=== PATIENT | male | born 1980 | race African-American/Black ===

== ENCOUNTER 2020-04-15 17:44 | Emergency (ER) | payer OTHER ==
--- NOTE | 2020-04-15 19:04 | XR ---
EXAMINATION TYPE: XR chest 2V DATE OF EXAM: 04/15/2020 COMPARISON: NONE HISTORY: Fever and cough TECHNIQUE: 2 views FINDINGS: Heart and mediastinum are normal. Lungs are clear. Diaphragm is normal. Bony thorax appears normal. IMPRESSION: Normal chest.
--- NOTE | 2020-04-15 19:37 | ED ---
General Adult HPI - General Chief complaint: Fever Stated complaint: Covid test, needs for work Time Seen by Provider: 04/15/20 19:27 Source: patient, RN notes reviewed Mode of arrival: ambulatory Limitations: no limitations - History of Present Illness Initial comments: 40-year-old male presents to the emergency department for a chief complaint of cough. Patient reports that he has had a cough and sore throat for the past day or so. He was exposed to Covid as his [id number] was tested positive. Patient is anxious he may have Covid. He admits to minimal shortness of breath. Denies chest pain.Patient has no other complaints at this time including chest pain, abdominal pain, nausea or vomiting, headache, or visual changes. - Related Data Previous Rx's Medication Instructions Recorded Benzonatate [Tessalon Perles] 200 mg PO Q8H PRN #15 capsule 04/15/20 guaiFENesin [Mucinex] 600 mg PO Q12HR PRN #20 tablet.er 04/15/20 Allergies Allergy/AdvReac Type Severity Reaction Status Date / Time No Known Allergies Allergy Verified 04/15/20 18:20 Review of Systems ROS Statement: Those systems with pertinent positive or pertinent negative responses have been documented in the HPI. ROS Other: All systems not noted in ROS Statement are negative. Past Medical History Past Medical History: Diabetes Mellitus History of Any Multi-Drug Resistant Organisms: None Reported Past Surgical History: No Surgical Hx Reported Past Psychological History: No Psychological Hx Reported Smoking Status: Never smoker Past Alcohol Use History: None Reported Past Drug Use History: None Reported General Exam Limitations: no limitations General appearance: alert, in no apparent distress Head exam: Present: atraumatic, normocephalic, normal inspection Eye exam: Present: normal appearance, PERRL, EOMI. Absent: scleral icterus, conjunctival injection, periorbital swelling ENT exam: Present: normal exam, mucous membranes moist Neck exam: Present: normal inspection, full ROM. Absent: tenderness, meningismus, lymphadenopathy Respiratory exam: Present: normal lung sounds bilaterally. Absent: respiratory distress, wheezes, rales, rhonchi, stridor Cardiovascular Exam: Present: regular rate, normal rhythm, normal heart sounds. Absent: systolic murmur, diastolic murmur, rubs, gallop, clicks GI/Abdominal exam: Present: soft, normal bowel sounds. Absent: distended, tende rness, guarding, rebound, rigid Neurological exam: Present: alert Course Vital Signs 04/15/20 04/15/20 18:16 19:33 Temperature 100.0 F H Pulse Rate 95 Respiratory 20 18 Rate Blood Pressure 125/90 O2 Sat by Pulse 98 Oximetry Medical Decision Making - Medical Decision Making Vitals are stable. Patient has a low-grade temperature of 100.0. 98% on room air. Patient well-appearing. Chest x-ray shows a normal chest. COVID pcr pending. Presumed Covid-positive given history of exposure. Recommended patient quarantine. Recommended he return for any worsening symptoms such as shortness of breath. Disposition Clinical Impression: Cough, Fever, COVID-19 virus RNA test result unknown Disposition: HOME SELF-CARE Condition: Good Instructions (If sedation given, give patient instructions): Fever in Adults (ED) Additional Instructions: Please watch for Covid results. Take Tylenol for fever. You must quarantine until these results are completed. If you have any worsening symptoms such as shortness of breath return to the emergency department. Prescriptions: guaiFENesin [Mucinex] 600 mg PO Q12HR PRN #20 tablet.er PRN Reason: Congestion Benzonatate [Tessalon Perles] 200 mg PO Q8H PRN #15 capsule PRN Reason: Cough Is patient prescribed a controlled substance at d/c from ED?: No Referrals: Katarina Pierce MD [REFERRING] - 1-2 days Time of Disposition: 20:19
[2020-04-15] MEDS ORDERED: ACETAMINOPHEN TAB 500 MG TAB PO STA (20:05)
[2020-04-15 20:33] VITALS: BP 133/78; PULSE 88; RESP 16; TEMP 98.2
== END 2020-04-15 20:33 | disposition home or self-care (01) ==
LOC: EC 17:44
DX: R05 Cough (principal); R50.9 Fever, unspecified; R06.02 Shortness of breath; Z20.828 Contact with and (suspected) exposure to other viral communicable diseases
CPT/HCPCS: 71046; 99283; U0003

== ENCOUNTER 2020-07-15 09:32 | Emergency (ER) | payer SELFPAY ==
[2020-07-15 09:45] VITALS: BP 172/97; PULSE 100; RESP 18; TEMP 99
--- NOTE | 2020-07-15 11:02 | ED ---
Back Pain HPI - General Chief Complaint: Back Pain/Injury Stated Complaint: back pain Time Seen by Provider: 07/15/20 10:05 Source: patient Limitations: no limitations - History of Present Illness Initial Comments: patient is a 40-year-old male presenting to the emergency Department with complaints of left lower back pain that has been intermittent for the past month. Patient states about 1 month ago he fell at work and landed mostly on his butt, left side. Patient states since then he has been dealing with this low back discomfort. He states over the past week it is starting to get worse, he has pain when he tries to bend over and spasming. He denies any numbness and tingling into his extremities, no bowel or bladder incontinence, no saddle paresthesias. He denies any previous surgeries of his spine. He denies any fever or chills. he states he has not seen a PCP for this as he just recently moved to the area, a month ago and does not have a regular doctor yet.He has no further complaints at this time. - Related Data Previous Rx's Medication Instructions Recorded Cyclobenzaprine [Flexeril] 5 mg PO BID #10 tablet 07/15/20 Allergies Allergy/AdvReac Type Severity Reaction Status Date / Time No Known Allergies Allergy Verified 07/15/20 10:44 Review of Systems ROS Statement: Those systems with pertinent positive or pertinent negative responses have been documented in the HPI. ROS Other: All systems not noted in ROS Statement are negative. Past Medical History Past Medical History: Diabetes Mellitus History of Any Multi-Drug Resistant Organisms: None Reported Past Surgical History: No Surgical Hx Reported Past Psychological History: No Psychological Hx Reported Smoking Status: Never smoker Past Alcohol Use History: None Reported Past Drug Use History: None Reported General Exam - General Exam Comments Initial Comments: GENERAL: Patient is well-developed and well-nourished. Patient is nontoxic and in no acute distress. HEAD: Atraumatic, normocephalic. EYES: Pupils equal round and reactive to light, extraocular movements intact, sclera anicteric, conjunctiva are normal. Eyelids were unremarkable. ENT: TMs normal, nares patent, oropharynx clear without exudates. Moist mucous membranes. NECK: Normal range of motion, supple without lymphadenopathy or JVD. LUNGS: Unlabored respirations. Breath sounds clear to auscultation bilaterally and equal. No wheezes rales or rhonchi. HEART: Regular rate and rhythm without murmurs, rubs or gallops. ABDOMEN: Soft, nontender, normoactive bowel sounds. No guarding, no rebound. No masses appreciated. : Deferred MUSCULOSKELETAL: Normal extremities with adequate strength and normal range of motion, no pitting or edema. No clubbing or cyanosis. Mild pain with palpation of the left lumbar paraspinals, left sciatic area. Increased pain with trunk flexion. NEUROLOGICAL: Patient is alert and oriented x 3. Motor and sensory are also intact. Cranial nerves II through XII grossly intact. Symmetrical smile. Normal speech, normal gait. PSYCH: Normal mood, normal affect. SKIN: Warm, Dry, normal turgor, no rashes or lesions noted. Limitations: no limitations Course Vital Signs 07/15/20 09:43 Temperature 99.0 F Pulse Rate 100 Respiratory 18 Rate Blood Pressure 172/97 O2 Sat by Pulse 100 Oximetry Medical Decision Making - Medical Decision Making patient is a 40-year-old male here for left low back pain, left sciatica-type symptoms that has been intermittent for the past month. He had a fall at work, landed mostly in his bottom. His exam is consistent with lumbar muscle strain, left-sided sciatica. x-rays reveal no acute fractures dislocations. Discussed with patient this is most likely a muscle spasm, left-sided sciatica. Recommended heat, gentle stretching, ibuprofen for any discomfort. I will give him a few days of a muscle relaxer as well. Patient is requesting a work note, I will give him one. Patient is stable for discharge. Patient is in agreement with this plan of care. Return parameters were discussed with the patient and they verbalized understanding. Case discussed with Dr. Orellana. Disposition Clinical Impression: Sciatica of left side Disposition: HOME SELF-CARE Condition: Stable Instructions (If sedation given, give patient instructions): Sciatica (ED) Additional Instructions: Please return to the Emergency Department if symptoms worsen or any other concerns. Recommend taking Motrin or Aleve for discomfort, heat to the back, gentle stretching, Flexeril at nighttime for spasms. Up with regular physician as discussed. Prescriptions: Cyclobenzaprine [Flexeril] 5 mg PO BID #10 tablet Is patient prescribed a controlled substance at d/c from ED?: No Referrals: None,Stated [Primary Care Provider] - 1-2 days Katarina Pierce MD [REFERRING] - 1-2 days
--- NOTE | 2020-07-15 11:33 | XR ---
EXAM TYPE: LUMBAR SPINE X RAY SERIES COMPARISON: NONE HISTORY: Pain TECHNIQUE: 3 views are submitted. FINDINGS: Alignment is anatomic. The pedicles are intact. The transverse processes are intact. There is no s pondylolysis or spondylolisthesis. Hypertrophic and degenerative changes at T11-T12. IMPRESSION: 1. Hypertrophic and degenerative changes T11-T12.
== END 2020-07-15 11:54 | disposition home or self-care (01) ==
LOC: EC 09:32
DX: M54.42 Lumbago with sciatica, left side (principal); E11.9 Type 2 diabetes mellitus without complications
CPT/HCPCS: 72100; 99283

== ENCOUNTER 2024-12-24 16:04 | Inpatient (IN) | payer OTHER ==
--- NOTE | 2024-12-24 16:22 | ED ---
General Adult HPI - General Chief complaint: Extremity Problem,Nontraumatic Stated complaint: L foot issue Time Seen by Provider: 12/24/24 16:08 Source: patient, RN notes reviewed Mode of arrival: ambulatory Limitations: no limitations - History of Present Illness Initial comments: 44-year-old male with a history of T2DM presenting to the ER with complaints of left foot great toe pain and concern for infection. Patient states that over the past week and a half he has had worsening pain of his foot in the past few days he has noticed that there has been swelling purulent drainage and serous drainage. He reports over the weekend multiple episodes of emesis with nausea and reported chills. Does have a history of infection of the same toe in June 2024 where he had a PICC line and received IV antibiotics for 3 weeks. Patient states that he was "signed off "for infectious disease about 2-1/2 months ago and has not followed up with providers since. Denies current or recent antibiotic use. - Related Data Home Medications Medication Instructions Recorded Confirmed Semaglutide [Ozempic] 0.25 mg SQ MO 12/24/24 12/24/24 Allergies Allergy/AdvReac Type Severity Reaction Status Date / Time iodine Allergy Anaphylaxis Verified 12/24/24 17:43 mushroom Allergy Unknown Verified 12/24/24 17:43 shellfish derived [Shellfish] Allergy Anaphylaxis Verified 12/24/24 17:43 Review of Systems ROS Statement: Those systems with pertinent positive or pertinent negative responses have been documented in the HPI. ROS Other: All systems not noted in ROS Statement are negative. Past Medical History Past Medical History: Diabetes Mellitus History of Any Multi-Drug Resistant Organisms: None Reported Past Surgical History: No Surgical Hx Reported Additional Past Surgical History / Comment(s): left foot skin surgery Past Psychological History: No Psychological Hx Reported Smoking Status: Never smoker Past Alcohol Use History: None Reported Past Drug Use History: None Reported General Exam Limitations: no limitations Neck exam: Present: normal inspection. Absent: tenderness, meningismus, lymphadenopathy Respiratory exam: Present: normal lung sounds bilaterally. Absent: respiratory distress, wheezes, rales, rhonchi, stridor Cardiovascular Exam: Present: regular rate, normal rhythm, normal heart sounds. Absent: systolic murmur, diastolic murmur, rubs, gallop, clicks GI/Abdominal exam: Present: soft, normal bowel sounds. Absent: distended, tenderness, guarding, rebound, rigid Left Foot/Toe exam: Present: tenderness, swelling, erythema. Absent: ecchymosis, crepitus Neurovascular tendon exam: Present: no vascular compromise. Absent: pulse deficit Back exam: Present: normal inspection Course Vital Signs 12/24/24 12/24/24 12/24/24 16:04 17:07 20:42 Temperature 98.5 F Pulse Rate 111 H 98 96 Respiratory 18 18 18 Rate Blood Pressure 107/65 128/88 115/86 O2 Sat by Pulse 99 97 98 Oximetry 12/24/24 21:58 Temperature 99.8 F H Pulse Rate 100 Respiratory 18 Rate Blood Pressure 106/87 O2 Sat by Pulse 96 Oximetry Medical Decision Making - Medical Decision Making Was pt. sent in by a medical professional or institution (, PA, COSTUME DESIGN TEACHER, urgent care, hospital, or correction...) When possible be specific @ -No Did you speak to anyone other than the patient for history (EMS, parent, family, police, friend...)? What history was obtained from this source @ -No Did you review nursing and triage notes (agree or disagree)? Why? @ -I reviewed and agree with nursing and triage notes Were old charts reviewed (outside hosp., previous admission, EMS record, old EKG, old radiological studies, urgent care reports/EKG's, correction records)? Report findings @ -No old charts were reviewed Differential Diagnosis (chest pain, altered mental status, abdominal pain women, abdominal pain men, vaginal bleeding, weakness, fever, dyspnea, syncope, headache, dizziness, GI bleed, back pain, seizure, CVA, palpatations, mental health, musculoskeletal)? @ -Cellulitis, abscess, osteomyelitis, this list is not all inclusive EKG interpreted by me (3pts min.). @ -None X-rays interpreted by me (1pt min.). @ -X-ray of the left foot reveals no evidence of acute fracture with soft tissue swelling of the first digit with no osseous erosion to suggest osteomyelitis CT interpreted by me (1pt min.). @ -None done U/S interpreted by me (1pt. min.). @ -None done What testing was considered but not performed or refused? (CT, X-rays, U/S, labs)? Why? @ -None What meds were considered but not given or refused? Why? @ -None Did you discuss the management of the patient with other professionals (pro fessionals i.e. , PA, COSTUME DESIGN TEACHER, lab, RT, psych nurse, social worker psychiatric, diesel lube tech, teacher, police patrol officer, caseworker intake)? Give summary @ -Spoke with patient's primary care provider, Dr. Vivas, was agreed to meet the patient for IV antibiotics with infectious disease on consult. Was smoking cessation discussed for >3mins.? @ -No Was critical care preformed (if so, how long)? @ -No Were there social determinants of health that impacted care today? How? (Homelessness, low income, unemployed, alcoholism, drug addiction, transportation, low edu. Level, literacy, decrease access to med. care, retirement, rehab)? @ -No Was there de-escalation of care discussed even if they declined (Discuss DNR or withdrawal of care, Hospice)? DNR status @ -No What co-morbidities impacted this encounter? (DM, HTN, Smoking, COPD, CAD, Cancer, CVA, ARF, Chemo, Hep., AIDS, mental health diagnosis, sleep apnea, morbid obesity)? @ -Diabetes mellitus Was patient admitted / discharged? Hospital course, mention meds given and ro [place], prescriptions, significant lab abnormalities, going to OR and other pertinent info. @ -Admitted. 44-year-old male presenting to the ER with complaints of left great toe pain. Patient's left great toe is erythematous, edematous and there is purulent material expelled with pressure. Patient was offered pain medication however is declined. Wound cultures obtained. Laboratory testing reveals mild leukocytosis 11.65. Patient is hyperglycemic with a glucose of 334. CRP elevated 8.6. X-ray imaging reveals no evidence of osteomyelitis. With concern for severity of infection patient will be admitted for IV biotics. He is provided with 2 g of Rocephin. Infectious disease consult placed. Patient is admitted to Dr. Vivas. Case discussed with my attending Dr. Ivey Undiagnosed new problem with uncertain prognosis? @ -No Drug Therapy requiring intensive monitoring for toxicity (Heparin, Nitro, Insulin, Cardizem)? @ -No Were any procedures done? @ -No Diagnosis/symptom? @ -Cellulitis of left great toe Acute, or Chronic, or Acute on Chronic? @ -Acute Uncomplicated (without systemic symptoms) or Complicated (systemic symptoms)? @ -Uncomplicated Side effects of treatment? @ -No Exacerbation, Progression, or Severe Exacerbation? @ -No Poses a threat to life or bodily function? How? (Chest pain, [place], NE, pneumonia, PE, COPD, DKA, ARF, appy, cholecystitis, CVA, Diverticulitis, Homicidal, Suicidal, threat to staff... and all critical care pts) @ -No - Lab Data Result diagrams: 12/24/24 17:08 12/24/24 17:50 Lab Results 12/24/24 12/24/24 Range/Units 16:42 17:08 WBC 11.65 H (4.50-10.00) 10*3/uL RBC 4.57 (4.40-5.60) 10*6/uL Hgb 12.5 L (13.0-17.0) g/dL Hct 36.7 L (39.6-50.0) % MCV 80.3 (80.0-97.0) fL MCH 27.4 (27.0-32.0) pg MCHC 34.1 (32.0-37.0) g/dL Plt Count 199 (140-440) 10*3/uL MPV 11.6 (9.5-12.2) fL Immature Gran % (Auto) 0.3 % Neutrophils % 64.8 % Lymphocytes % 23.5 % Monocytes % 10.1 % Eosinophils % 0.9 % Basophils % 0.4 % Immature Gran # 0.04 (0.00-0.04) 10*3/uL Neutrophils # 7.53 (1.80-7.70) 10*3/uL Lymphocytes # 2.74 (0.90-5.00) 10*3/uL Monocytes # 1.18 H (0.20-1.00) 10*3/uL Eosinophils # 0.11 (0.04-0.35) 10*3/uL Basophils # 0.05 (0.00-0.10) 10*3/uL Plasma Lactic Acid Henrique 1.5 (0.7-2.0) mmol/L Disposition Clinical Impression: Cellulitis of great toe Disposition: ADMITTED IP TO THIS [facility] Condition: Stable Decision to Admit Reason: Admit from EC Decision Date: 12/24/24 Decision Time: 19:35
[2024-12-24] MEDS: LACTATED RINGERS 1,000 ML IV ONE (16:44)
--- NOTE | 2024-12-24 16:59 | XR ---
EXAMINATION TYPE: XR foot complete LT DATE OF EXAM: 12/24/2024 4:47 PM INDICATION: Patient age:Male; 44 years old; Reason for study: great toe infection, purulence, pain; PHH. pain COMPARISON: None TECHNIQUE: The left foot was examined in the AP, oblique, and lateral projections. FINDINGS: No evidence of any acute osseous pathology. No osseous erosions. No radiopaque foreign body. Soft ti ssue swelling of the first digit. Joints are preserved. Small plantar calcaneal enthesophyte. IMPRESSION: 1. No evidence of acute fracture. 2. Soft tissue swelling of the first digit corresponding to reported great toe infection. No osseous erosions to suggest osteomyelitis. [facility], , 12/24/2024 4:56 PM
[2024-12-24 17:27] LABS: Basophils # (A) 0.05 10*3/uL (0.00-0.10); Basophils % (A) 0.4 %; Eosinophils # (A) 0.11 10*3/uL (0.04-0.35); Eosinophils % (A) 0.9 %; HCT 36.7 % (39.6-50.0); HGB 12.5 g/dL (13.0-17.0); Lymphocytes # (A) 2.74 10*3/uL (0.90-5.00); Lymphocytes % (A) 23.5 %; MCH 27.4 pg (27.0-32.0); MCHC 34.1 g/dL (32.0-37.0); MCV 80.3 fL (80.0-97.0); Monocytes # (A) 1.18 10*3/uL (0.20-1.00); Monocytes % (A) 10.1 %; Neutrophils # (A) 7.53 10*3/uL (1.80-7.70); Neutrophils % (A) 64.8 %; Platelet Count 199 10*3/uL (140-440); RBC 4.57 10*6/uL (4.40-5.60); RDW 13.0 % (11.5-14.5); WBC 11.65 10*3/uL (4.50-10.00)
[2024-12-24 18:19] LABS: ALT 43 U/L (4-49); AST 28 U/L (17-59); African American GFR (CKD) >90 (>60 ml/min/1.73 sqM); Albumin 3.7 g/dL (3.5-5.0); Alkaline Phosphatase 129 U/L (38-126); Anion Gap 10 mmol/L; Blood Urea Nitrogen 11 mg/dL (9-20); Calcium 9.1 mg/dL (8.4-10.2); Carbon Dioxide 27 mmol/L (22-30); Chloride 95 mmol/L (98-107); Glucose 334 mg/dL (74-99); Non-African American GFR(CKD) >90 (>60 ml/min/1.73 sqM); Potassium 4.3 mmol/L (3.5-5.1); Sodium 132 mmol/L (137-145); Total Protein 7.0 g/dL (6.3-8.2)
[2024-12-24] MEDS ORDERED: NALOXONE 0.4 MG/ML 1 ML VIAL IV PRN (19:37)
[2024-12-24] MEDS ORDERED: IBUPROFEN 400 MG TAB PO PRN (19:37)
[2024-12-24] MEDS ORDERED: ACETAMINOPHEN TAB 325 MG TAB PO PRN (19:37)
[2024-12-24] MEDS ORDERED: DEXTROSE 50% SYRINGE 50 ML IVP PRN ×4 (20:29→20:55)
[2024-12-24] MEDS ORDERED: INSULIN LISPRO (HumaLOG) 100 UNIT/ML 10 mL VL SQ SCH ×2 (21:00)
[2024-12-24 21:05] LABS: Glucose,Whole Blood 312 mg/dL (70-110)
[2024-12-24] MEDS: INSULIN LISPRO (HumaLOG) 100 UNIT/ML 10 mL VL SQ SCH (21:15)
[2024-12-25 06:14] LABS: Glucose,Whole Blood 240 mg/dL (70-110)
[2024-12-25 10:26] LABS: Basophils # (A) 0.07 X 10*3/uL (0.00-0.10); Basophils % (A) 0.8 %; Eosinophils # (A) 0.26 X 10*3/uL (0.04-0.35); Eosinophils % (A) 2.9 %; HCT 37.0 % (39.6-50.0); HGB 11.8 g/dL (13.0-17.0); Immature Grans, Automated 0.50 %; Lymphocytes # (A) 3.68 X 10*3/uL (0.90-5.00); Lymphocytes % (A) 41.6 %; MCH 25.9 pg (27.0-32.0); MCHC 31.9 g/dL (32.0-37.0); MCV 81.3 FL (80.0-97.0); Monocytes # (A) 0.87 X 10*3/uL (0.20-1.00); Monocytes % (A) 9.8 %; NRBC Per 100 WBC 0 X 10*3/uL (0.00-0.01); Neutrophils # (A) 3.92 X 10*3/uL (1.80-7.70); Neutrophils % (A) 44.4 %; Platelet Count 219 X 10*3/uL (140-440); RBC 4.55 X 10*6/uL (4.40-5.60); RDW 13.4 % (11.5-14.5); WBC 8.84 X 10*3/uL (4.50-10.00)
[2024-12-25 10:44] LABS: ALT 37 U/L (10-49); AST 18 U/L (14-35); Albumin 3.4 g/dL (3.8-4.9); Albumin/Globulin Ratio 1.13 Ratio (1.60-3.17); Alkaline Phosphatase 124 U/L (41-126); Anion Gap 10.30 mmol/L (4.00-12.00); BUN/Creat Ratio 11.29 Ratio (12.00-20.00); Blood Urea Nitrogen 7.9 mg/dL (9.0-27.0); Calcium 8.7 mg/dL (8.7-10.3); Carbon Dioxide 24.7 mmol/L (21.6-31.8); Chloride 98 mmol/L (96-109); Globulin 3.0 g/dL (1.6-3.3); Glucose 264 mg/dL (70-110); Potassium 3.8 mmol/L (3.5-5.5); Sodium 133 mmol/L (135-145); Total Protein 6.4 g/dL (6.2-8.2)
[2024-12-25 12:11] LABS: Glucose,Whole Blood 225 mg/dL (70-110)
--- NOTE | 2024-12-25 15:19 | P.GSCN ---
History of Present Illness History of present illness: 58-year-old gentleman well-known to me from the past and has a callus on the plantar aspect of the left big toe. Swelling and pain in the left foot big toe blister formation and with some drainage patient has been admitted foiotics left big toe has some drainage we took the deep culture for aerobic and anaerobic wound is clean the saline and we placed silver alginat I have discussed about most likely will have a toe potation we will continue with antibiotic and decide history of diabetes neck examination neck is supple no bruit Chest clear good air entry in both lungs. Second sound present abdomen is soft nontender Vascular femorals are 1+ bilateral DP 1+ left big toe recent deep culture in place silver alginate we will watch for 48 hours if not then patient will need amputation Past Medical History Past Medical History: Diabetes Mellitus History of Any Multi-Drug Resistant Organisms: None Reported Past Surgical History: No Surgical Hx Reported Additional Past Surgical History / Comment(s): left foot skin surgery Past Anesthesia/Blood Transfusion Reactions: No Reported Reaction Past Psychological History: No Psychological Hx Reported Smoking Status: Never smoker Past Alcohol Use History: None Reported Past Drug Use History: None Reported Medications and Allergies Home Medications Medication Instructions Recorded Confirmed Type Semaglutide [Ozempic] 0.25 mg SQ MO 12/24/24 12/24/24 History Allergies Allergy/AdvReac Type Severity Reaction Status Date / Time iodine Allergy Anaphylaxis Verified 12/24/24 17:43 mushroom Allergy Unknown Verified 12/24/24 17:43 shellfish derived [Shellfish] Allergy Anaphylaxis Verified 12/24/24 17:43 Surgical - Exam Vital Signs Temp Pulse Resp BP Pulse Ox 98.5 F 111 H 18 107/65 99 12/24/24 16:04 12/24/24 16:04 12/24/24 16:04 12/24/24 16:04 12/24/24 16:04 Results - Labs 12/25/24 05:59 12/25/24 05:59 Abnormal Lab Results - Last 24 Hours (Table) 12/24/24 12/24/24 12/24/24 Range/Units 17:08 17:50 21:04 WBC 11.65 H (4.50-10.00) 10*3/uL Hgb 12.5 L (13.0-17.0) g/dL Hct 36.7 L (39.6-50.0) % MCH (27.0-32.0) pg MCHC (32.0-37.0) g/dL Monocytes # 1.18 H (0.20-1.00) 10*3/uL Sodium 132 L (137-145) mmol/L Chloride 95 L (98-107) mmol/L BUN (9.0-27.0) mg/dL BUN/Creatinine Ratio (12.00-20.00) Ratio Glucose 334 H (74-99) mg/dL POC Glucose (mg/dL) 312 H (70-110) mg/dL Hemoglobin A1c (<=6.0) % Total Bilirubin (0.3-1.2) mg/dL Alkaline Phosphatase 129 H (38-126) U/L C-Reactive Protein 8.6 H (<1.0) mg/dL Albumin (3.8-4.9) g/dL Albumin/Globulin Ratio (1.60-3.17) Ratio 12/25/24 12/25/24 12/25/24 Range/Units 05:59 05:59 05:59 WBC (4.50-10.00) 10*3/uL Hgb 11.8 L (13.0-17.0) g/dL Hct 37.0 L (39.6-50.0) % MCH 25.9 L (27.0-32.0) pg MCHC 31.9 L (32.0-37.0) g/dL Monocytes # (0.20-1.00) 10*3/uL Sodium 133 L (137-145) mmol/L Chloride (98-107) mmol/L BUN 7.9 L (9.0-27.0) mg/dL BUN/Creatinine Ratio 11.29 L (12.00-20.00) Ratio Glucose 264 H (74-99) mg/dL POC Glucose (mg/dL) (70-110) mg/dL Hemoglobin A1c 12.0 H (<=6.0) % Total Bilirubin <0.2 L (0.3-1.2) mg/dL Alkaline Phosphatase (38-126) U/L C-Reactive Protein (<1.0) mg/dL Albumin 3.4 L (3.8-4.9) g/dL Albumin/Globulin Ratio 1.13 L (1.60-3.17) Ratio 12/25/24 12/25/24 Range/Units 06:11 12:09 WBC (4.50-10.00) 10*3/uL Hgb (13.0-17.0) g/dL Hct (39.6-50.0) % MCH (27.0-32.0) pg MCHC (32.0-37.0) g/dL Monocytes # (0.20-1.00) 10*3/uL Sodium (137-145) mmol/L Chloride (98-107) mmol/L BUN (9.0-27.0) mg/dL BUN/Creatinine Ratio (12.00-20.00) Ratio Glucose (74-99) mg/dL POC Glucose (mg/dL) 240 H 225 H (70-110) mg/dL Hemoglobin A1c (<=6.0) % Total Bilirubin (0.3-1.2) mg/dL Alkaline Phosphatase (38-126) U/L C-Reactive Protein (<1.0) mg/dL Albumin (3.8-4.9) g/dL Albumin/Globulin Ratio (1.60-3.17) Ratio Diabetes panel 12/24/24 12/25/24 12/25/24 Range/Units 17:50 05:59 05:59 Sodium 132 L 133 L (137-145) mmol/L Potassium 4.3 3.8 (3.5-5.1) mmol/L Chloride 95 L 98 (98-107) mmol/L Carbon Dioxide 27 24.7 (22-30) mmol/L BUN 11 7.9 L (9-20) mg/dL Creatinine 0.69 0.7 (0.66-1.25) mg/dL Glucose 334 H 264 H (74-99) mg/dL Hemoglobin A1c 12.0 H (<=6.0) % Calcium 9.1 8.7 (8.4-10.2) mg/dL AST 28 18 (17-59) U/L ALT 43 37 (4-49) U/L Alkaline Phosphatase 129 H 124 (38-126) U/L Total Protein 7.0 6.4 (6.3-8.2) g/dL Albumin 3.7 3.4 L (3.5-5.0) g/dL Calcium panel 12/24/24 12/25/24 Range/Units 17:50 05:59 Calcium 9.1 8.7 (8.4-10.2) mg/dL Albumin 3.7 3.4 L (3.5-5.0) g/dL Pituitary panel 12/24/24 12/25/24 Range/Units 17:50 05:59 Sodium 132 L 133 L (137-145) mmol/L Potassium 4.3 3.8 (3.5-5.1) mmol/L Chloride 95 L 98 (98-107) mmol/L Carbon Dioxide 27 24.7 (22-30) mmol/L BUN 11 7.9 L (9-20) mg/dL Creatinine 0.69 0.7 (0.66-1.25) mg/dL Glucose 334 H 264 H (74-99) mg/dL Calcium 9.1 8.7 (8.4-10.2) mg/dL Adrenal panel 12/24/24 12/25/24 Range/Units 17:50 05:59 Sodium 132 L 133 L (137-145) mmol/L Potassium 4.3 3.8 (3.5-5.1) mmol/L Chloride 95 L 98 (98-107) mmol/L Carbon Dioxide 27 24.7 (22-30) mmol/L BUN 11 7.9 L (9-20) mg/dL Creatinine 0.69 0.7 (0.66-1.25) mg/dL Glucose 334 H 264 H (74-99) mg/dL Calcium 9.1 8.7 (8.4-10.2) mg/dL Total Bilirubin 0.5 <0.2 L (0.2-1.3) mg/dL AST 28 18 (17-59) U/L ALT 43 37 (4-49) U/L Alkaline Phosphatase 129 H 124 (38-126) U/L Total Protein 7.0 6.4 (6.3-8.2) g/dL Albumin 3.7 3.4 L (3.5-5.0) g/dL
[2024-12-25 17:12] LABS: Glucose,Whole Blood 297 mg/dL (70-110)
[2024-12-25] MEDS: AMPICILLIN-SULBACTAM 3 GM in SODIUM CHLORIDE 0.9% 100 ML IVPB SCH (18:11)
[2024-12-25] MEDS: LIDOCAINE 1% INJ 10MG/ML (20 ML MDV) SQ ONE (18:11)
[2024-12-25 20:32] LABS: Glucose,Whole Blood 302 mg/dL (70-110)
[2024-12-25] MEDS: INSULIN GLARGINE (LANTUS) 100 UNIT/ML SYR SQ SCH (20:36)
[2024-12-26 06:03] LABS: Glucose,Whole Blood 214 mg/dL (70-110)
[2024-12-26] MEDS: INSULIN LISPRO (HumaLOG) 100 UNIT/ML 10 mL VL SQ SCH (06:45)
--- NOTE | 2024-12-26 07:43 | P.CONS ---
History of Present Illness - Reason for Consult Consult date: 12/25/24 Left big toe cellulitis Requesting physician: Jessica Guthrie - Chief Complaint Left big toe swelling pain and redness x few days - History of Present Illness Patient is a 44-year-old -[place] male with a past medical history significant for diabetes mellitus in this patient has been dealing with the callus to the left big toe for some time and to follow-up with Dr. Cornell at the wound care center patient presented to the hospital concerning for left big toe swelling redness pain and concern for infection patient mention he noticed having increasing swelling over the last day or 2 and also noticed to having some purulent and serous drainage patient did mention that the pain decrease in intensity with spontaneous drainage of some of those fluid however did have associated swelling and redness with concern for infection when she presented to the hospital patient has been complaining of feeling nauseated and did have some chills and apparently the patient has been treated for infection to the left big toe with IV antibiotics by ID physician at [facility] who subsequently has cleared the patient and the patient has been antibiotics for the last few weeks, patient presentation to the hospital did have a low-grade fever of 99.8 degrees for night patient was mildly tachycardic but not hypotensive or hypoxic did have a white count of 11.65 creatinine 0.69 liver enzymes are normal local culture obtained which are currently pending patient was started on Rocephin infectious disease was consulted for cellulitis left big toe Review of Systems Positive point and negatives has been mentioned in the HPI, complete review of systems was performed and all other systems are negative Past Medical History Past Medical History: Diabetes Mellitus History of Any Multi-Drug Resistant Organisms: None Reported Past Surgical History: No Surgical Hx Reported Additional Past Surgical History / Comment(s): left foot skin surgery Past Anesthesia/Blood Transfusion Reactions: No Reported Reaction Past Psychological History: No Psychological Hx Reported Smoking Status: Never smoker Past Alcohol Use History: None Reported Past Drug Use History: None Reported Medications and Allergies Home Medications Medication Instructions Recorded Confirmed Type Semaglutide [Ozempic] 0.25 mg SQ MO 12/24/24 12/24/24 History Allergies Allergy/AdvReac Type Severity Reaction Status Date / Time iodine Allergy Anaphylaxis Verified 12/24/24 17:43 mushroom Allergy Unknown Verified 12/24/24 17:43 shellfish derived [Shellfish] Allergy Anaphylaxis Verified 12/24/24 17:43 Physical Exam Vitals: Vital Signs Temp Pulse Pulse Resp BP BP Pulse Ox 12/25/24 07:00 98.4 F 86 16 145/89 98 12/25/24 02:00 98.2 F 87 17 149/93 99 12/24/24 22:34 98.3 F 98 16 121/86 97 12/24/24 21:58 99.8 F H 100 18 106/87 96 12/24/24 20:42 96 18 115/86 98 12/24/24 17:07 98 18 128/88 97 12/24/24 16:04 98.5 F 111 H 18 107/65 99 Intake and Output 12/24/24 12/25/24 12/25/24 22:59 06:59 14:59 Other: # Voids 1 2 Weight 138.346 kg GENERAL DESCRIPTION: Middle-age male lying in bed, no distress. No tachypnea or accessory muscle of respiration use. HEENT: Shows Pallor , no scleral icterus. Oral mucous membrane is dry. NECK: Trachea central, no thyromegaly. LUNGS: Unlabored breathing. Clear to auscultation anteriorly. No wheeze or crackle. HEART: S1, S2, regular rate and rhythm. No loud murmur ABDOMEN: Soft, no tenderness , guarding or rigidity, no organomegaly EXTREMITIES: Left big toe did have a callus with surrounding swelling and redness minimal drainage on the dressing SKIN: No rash, no masses palpable. NEUROLOGICAL: The patient is awake, alert, oriented x3, mood and affect normal. Results CBC & Chem 7: 12/25/24 05:59 12/25/24 05:59 Labs: Abnormal Lab Results - Last 24 Hours (Table) 12/24/24 12/24/24 12/24/24 Range/Units 17:08 17:50 21:04 WBC 11.65 H (4.50-10.00) 10*3/uL Hgb 12.5 L (13.0-17.0) g/dL Hct 36.7 L (39.6-50.0) % MCH (27.0-32.0) pg MCHC (32.0-37.0) g/dL Monocytes # 1.18 H (0.20-1.00) 10*3/uL Sodium 132 L (137-145) mmol/L Chloride 95 L (98-107) mmol/L BUN (9.0-27.0) mg/dL BUN/Creatinine Ratio (12.00-20.00) Ratio Glucose 334 H (74-99) mg/dL POC Glucose (mg/dL) 312 H (70-110) mg/dL Hemoglobin A1c (<=6.0) % Total Bilirubin (0.3-1.2) mg/dL Alkaline Phosphatase 129 H (38-126) U/L C-Reactive Protein 8.6 H (<1.0) mg/dL Albumin (3.8-4.9) g/dL Albumin/Globulin Ratio (1.60-3.17) Ratio 12/25/24 12/25/24 12/25/24 Range/Units 05:59 05:59 05:59 WBC (4.50-10.00) 10*3/uL Hgb 11.8 L (13.0-17.0) g/dL Hct 37.0 L (39.6-50.0) % MCH 25.9 L (27.0-32.0) pg MCHC 31.9 L (32.0-37.0) g/dL Monocytes # (0.20-1.00) 10*3/uL Sodium 133 L (137-145) mmol/L Chloride (98-107) mmol/L BUN 7.9 L (9.0-27.0) mg/dL BUN/Creatinine Ratio 11.29 L (12.00-20.00) Ratio Glucose 264 H (74-99) mg/dL POC Glucose (mg/dL) (70-110) mg/dL Hemoglobin A1c 12.0 H (<=6.0) % Total Bilirubin <0.2 L (0.3-1.2) mg/dL Alkaline Phosphatase (38-126) U/L C-Reactive Protein (<1.0) mg/dL Albumin 3.4 L (3.8-4.9) g/dL Albumin/Globulin Ratio 1.13 L (1.60-3.17) Ratio 12/25/24 12/25/24 Range/Units 06:11 12:09 WBC (4.50-10.00) 10*3/uL Hgb (13.0-17.0) g/dL Hct (39.6-50.0) % MCH (27.0-32.0) pg MCHC (32.0-37.0) g/dL Monocytes # (0.20-1.00) 10*3/uL Sodium (137-145) mmol/L Chloride (98-107) mmol/L BUN (9.0-27.0) mg/dL BUN/Creatinine Ratio (12.00-20.00) Ratio Glucose (74-99) mg/dL POC Glucose (mg/dL) 240 H 225 H (70-110) mg/dL Hemoglobin A1c (<=6.0) % Total Bilirubin (0.3-1.2) mg/dL Alkaline Phosphatase (38-126) U/L C-Reactive Protein (<1.0) mg/dL Albumin (3.8-4.9) g/dL Albumin/Globulin Ratio (1.60-3.17) Ratio Assessment and Plan (1) Diabetic foot ulcer Current Visit: Yes Status: Acute Code(s): E11.621 - TYPE 2 DIABETES MELLITUS WITH FOOT ULCER; L97.509 - NON-PRESSURE CHRONIC ULCER OTH PRT UNSP FOOT W UNSP SEVERITY SNOMED Code(s): 806277233 (2) Diabetic foot infection Current Visit: Yes Status: Acute Code(s): E11.628 - TYPE 2 DIABETES MELLITUS WITH OTHER SKIN COMPLICATIONS; L08.9 - LOCAL INFECTION OF THE SKIN AND SUBCUTANEOUS TISSUE, UNSP SNOMED Code(s): 045910929 (3) Leukocytosis Current Visit: Yes Status: Acute Code(s): D72.829 - ELEVATED WHITE BLOOD JERRY L COUNT, UNSPECIFIED SNOMED Code(s): 615852346 (4) Cellulitis of great toe Current Visit: Yes Status: Acute Code(s): L03.039 - CELLULITIS OF UNSPECIFIED TOE SNOMED Code(s): 6404168081 Plan: 1patient presented hospital with increasing pain swelling redness to the left big toe and this patient did have history of callus to the left big toe and a previous history of infection to the left big toe treated with IV diuretic for 3 weeks back in June 2024 as reported by the ER physician treatment was done at [facility] to which I do not have any access. 2we will consult vascular surgery for debridement and deep culture. 3discontinue Rocephin. 4. The patient on Unasyn 3 g every 6 hours waiting for the culture to finalize 5check inflammatory markers Question concern answered in patient care discussed with the vascular surgeon We will follow on clinical condition and cultures to further adjust medication if needed Thank you for this consultation we will follow the patient along with you Dictation was produced using [employer] dictation software. please excuse any grammatical, word or spelling errors. Time with Patient: Greater than 30
[2024-12-26 12:33] LABS: Glucose,Whole Blood 213 mg/dL (70-110)
[2024-12-26 13:49] VITALS: BMI 41.3
--- NOTE | 2024-12-26 16:01 | P.PN ---
Progress Note - Text 44-year-old gentleman patient has a callus on the plantar aspect left foot big toe yesterday with cleaned it out and took some culture antibiotic under care of infectious disease the dressing no discharge noted base base of the wound is clean silver alginate will continue with Santyl cream next dressing will be changed on Tuesday show and having IV antibiotic under care of infectious disease we will home then follow-up with the wound clinic on Tuesday
[2024-12-26 17:27] LABS: Glucose,Whole Blood 171 mg/dL (70-110)
[2024-12-26 20:27] LABS: Glucose,Whole Blood 194 mg/dL (70-110)
[2024-12-26] MEDS: INSULIN GLARGINE (LANTUS) 100 UNIT/ML SYR SQ SCH (21:39)
[2024-12-27 06:08] LABS: Glucose,Whole Blood 184 mg/dL (70-110)
[2024-12-27 10:29] LABS: ALT 30 U/L (10-49); AST 17 U/L (14-35); Albumin 3.3 g/dL (3.8-4.9); Albumin/Globulin Ratio 1.14 Ratio (1.60-3.17); Alkaline Phosphatase 108 U/L (41-126); Anion Gap 10.20 mmol/L (4.00-12.00); BUN/Creat Ratio 11.29 Ratio (12.00-20.00); Blood Urea Nitrogen 7.9 mg/dL (9.0-27.0); Calcium 8.7 mg/dL (8.7-10.3); Carbon Dioxide 24.8 mmol/L (21.6-31.8); Chloride 102 mmol/L (96-109); Globulin 2.9 g/dL (1.6-3.3); Glucose 181 mg/dL (70-110); Potassium 4.0 mmol/L (3.5-5.5); Sodium 137 mmol/L (135-145); Total Protein 6.2 g/dL (6.2-8.2)
[2024-12-27 11:05] LABS: HCT 39.5 % (39.6-50.0); HGB 12.6 g/dL (13.0-17.0); MCH 26.6 pg (27.0-32.0); MCHC 31.9 g/dL (32.0-37.0); MCV 83.5 FL (80.0-97.0); NRBC Per 100 WBC 0 X 10*3/uL (0.00-0.01); Platelet Count 275 X 10*3/uL (140-440); RBC 4.73 X 10*6/uL (4.40-5.60); RDW 13.4 % (11.5-14.5); WBC 9.48 X 10*3/uL (4.50-10.00)
[2024-12-27 11:55] LABS: Basophils # (A) 0.07 X 10*3/uL (0.00-0.10); Basophils % (A) 0.7 %; Eosinophils # (A) 0.23 X 10*3/uL (0.04-0.35); Eosinophils % (A) 2.4 %; Immature Grans, Automated 0.60 %; Lymphocytes # (A) 4.49 X 10*3/uL (0.90-5.00); Lymphocytes % (A) 47.4 %; Monocytes # (A) 0.56 X 10*3/uL (0.20-1.00); Monocytes % (A) 5.9 %; Neutrophils # (A) 4.07 X 10*3/uL (1.80-7.70); Neutrophils % (A) 43.0 %; RBC Morphology Normal (Normal)
[2024-12-27 12:01] LABS: Glucose,Whole Blood 188 mg/dL (70-110)
[2024-12-27] MEDS ORDERED: VANCOMYCIN IV PER PHARMACY 1 EACH MISC MISCELLANE PRN (14:55)
--- NOTE | 2024-12-27 14:57 | P.PN ---
Subjective Progress Note Date: 12/26/24 Principal diagnosis: Reason for follow-up is left big toe diabetic foot infection/cellulitis Patient is a 44-year-old -[place] male with a past medical history significant for diabetes mellitus in this patient has been dealing with the callus to the left big toe for some time and to follow-up with Dr. Cornell at the wound care center patient presented to the hospital concerning for left big toe swelling redness patient has been diagnosed with a left big toe diabetic foot infection and did have a bedside debridement by vascular surgery. On today's evaluation that is 12/26/2024,the patient denies any fever or any chills, patient is breathing comfortably on room air, the patient denies chest pain shortness of breath and no significant cough, patient denies abdominal pain, no nausea vomiting or diarrhea. Pain and swelling to the left big toe has decreased in intensity. No new lab has been obtained today culture currently growing Enterococcus and Staphylococcus Objective - Vital Signs Vital signs: Vital Signs Temp 98.5 F 12/26/24 07:11 Pulse 77 12/26/24 07:11 Resp 17 12/26/24 07:11 BP 145/93 12/26/24 07:11 Pulse Ox 99 12/26/24 07:11 FiO2 Intake & Output 12/25/24 12/26/24 12/26/24 18:59 06:59 18:59 Other: Voiding Method Toilet Toilet # Voids 2 - Exam GENERAL DESCRIPTION: Middle-age male lying in bed in no distress RESPIRATORY SYSTEM: Unlabored breathing , decreased breath sounds at bases HEART: S1 S2 regular rate and rhythm , ABDOMEN: Soft , no tenderness EXTREMITIES: Left big toe swelling and redness slightly decreased - Labs CBC & Chem 7: 12/27/24 05:34 12/27/24 05:34 Labs: Abnormal Lab Results - Last 24 Hours (Table) 12/25/24 12/25/24 12/26/24 Range/Units 17:10 20:30 05:54 POC Glucose (mg/dL) 297 H 302 H 214 H (70-110) mg/dL 12/26/24 Range/Units 12:21 POC Glucose (mg/dL) 213 H (70-110) mg/dL Microbiology - Last 24 Hours (Table) 12/24/24 16:42 Blood Culture - Preliminary Blood 12/24/24 16:42 Gram Stain - Preliminary Toe - Left First Wound Culture - Preliminary Enterococcus faecalis Staphylococcus lugdunenisis Assessment and Plan (1) Diabetic foot ulcer Current Visit: Yes Status: Acute Code(s): E11.621 - TYPE 2 DIABETES MELLITUS WITH FOOT ULCER; L97.509 - NON-PRESSURE CHRONIC ULCER OTH PRT UNSP FOOT W UNSP SEVERITY SNOMED Code(s): 891286946 (2) Diabetic foot infection Current Visit: Yes Status: Acute Code(s): E11.628 - TYPE 2 DIABETES MELLITUS WITH OTHER SKIN COMPLICATIONS; L08.9 - LOCAL INFECTION OF THE SKIN AND SUBCUTANEOUS TISSUE, UNSP SNOMED Code(s): 392684777 (3) Leukocytosis Current Visit: Yes Status: Acute Code(s): D72.829 - ELEVATED WHITE BLOOD C ELL COUNT, UNSPECIFIED SNOMED Code(s): 504985903 (4) Cellulitis of great toe Current Visit: Yes Status: Acute Code(s): L03.039 - CELLULITIS OF UNSPECIFIED TOE SNOMED Code(s): 1508088007 Plan: 1patient presented hospital with increasing pain swelling redness to the left big toe and this patient did have history of callus to the left big toe and a previous history of infection to the left big toe treated with IV diuretic for 3 weeks back in June 2024 as reported by the ER physician treatment was done at [facility] to which I do not have any access. 2patient status post vascular surgery evaluation debridement and deep culture. 3patient will be treated with Unasyn 3 g every 6 hours waiting for the culture to finalize Dictation was produced using [employer] dictation software. please excuse any grammatical, word or spelling errors. Time with Patient: Less than 30
--- NOTE | 2024-12-27 14:58 | P.PN ---
Subjective Progress Note Date: 12/27/24 Principal diagnosis: Reason for follow-up is left big toe diabetic foot infection/cellulitis Patient is a 44-year-old -[place] male with a past medical history significant for diabetes mellitus in this patient has been dealing with the callus to the left big toe for some time and to follow-up with Dr. Cornell at the wound care center patient presented to the hospital concerning for left big toe swelling redness patient has been diagnosed with a left big toe diabetic foot infection and did have a bedside debridement by vascular surgery. On today's evaluation that is 12/27/2024,the patient remains to be afebrile, patient is on room air not requiring supplemental oxygen and mentioned breathing comfortably with no chest pain or cough.Patient denies having any nausea or vomiting, no abdominal pain and no diarrhea has been reported, patient mention overall improvement in pain to the left great toe. Culture now growing Enterococcus faecalis as well as oxacillin resistant Staphylococcus Lugdunenisis Objective - Vital Signs Vital signs: Vital Signs Temp 98.3 F 12/27/24 14:54 Pulse 92 12/27/24 14:54 Resp 17 12/27/24 14:54 BP 120/81 12/27/24 14:54 Pulse Ox 98 12/27/24 14:54 FiO2 Intake & Output 12/26/24 12/27/24 12/27/24 18:59 06:59 18:59 Intake Total 960 480 Output Total 600 Balance 960 -120 Weight 138.346 kg Intake: Oral 960 480 Output: Urine 600 Other: Voiding Method Toilet Toilet Toilet # Voids 2 2 1 - Exam GENERAL DESCRIPTION: Middle-age male lying in bed in no distress RESPIRATORY SYSTEM: Unlabored breathing , clear to auscultation HEART: S1 S2 regular rate and rhythm , ABDOMEN: Soft , no tenderness EXTREMITIES: Left big toe currently dressed no drainage - Labs CBC & Chem 7: 12/27/24 05:34 12/27/24 05:34 Labs: Abnormal Lab Results - Last 24 Hours (Table) 12/26/24 12/26/24 12/27/24 Range/Units 17:19 20:25 05:34 Hgb 12.6 L (13.0-17.0) g/dL Hct 39.5 L (39.6-50.0) % MCH 26.6 L (27.0-32.0) pg MCHC 31.9 L (32.0-37.0) g/dL Immature Gran # 0.06 H (0.00-0.04) X 10*3/uL ESR 69 H (0-15) mm/Hr BUN (9.0-27.0) mg/dL BUN/Creatinine Ratio (12.00-20.00) Ratio Glucose (70-110) mg/dL POC Glucose (mg/dL) 171 H 194 H (70-110) mg/dL Total Bilirubin (0.3-1.2) mg/dL Albumin (3.8-4.9) g/dL Albumin/Globulin Ratio (1.60-3.17) Ratio 12/27/24 12/27/24 12/27/24 Range/Units 05:34 06:06 11:53 Hgb (13.0-17.0) g/dL Hct (39.6-50.0) % MCH (27.0-32.0) pg MCHC (32.0-37.0) g/dL Immature Gran # (0.00-0.04) X 10*3/uL ESR (0-15) mm/Hr BUN 7.9 L (9.0-27.0) mg/dL BUN/Creatinine Ratio 11.29 L (12.00-20.00) Ratio Glucose 181 H (70-110) mg/dL POC Glucose (mg/dL) 184 H 188 H (70-110) mg/dL Total Bilirubin <0.2 L (0.3-1.2) mg/dL Albumin 3.3 L (3.8-4.9) g/dL Albumin/Globulin Ratio 1.14 L (1.60-3.17) Ratio Microbiology - Last 24 Hours (Table) 12/25/24 15:00 Gram Stain - Preliminary Toe - Left First Wound Culture - Preliminary 12/24/24 16:42 Blood Culture - Preliminary Blood 12/24/24 16:42 Gram Stain - Preliminary Toe - Left First Wound Culture - Preliminary Enterococcus faecalis Staphylococcus lugdunenisis Streptococcus anginosus 12/24/24 16:42 Anaerobic Culture - Preliminary Toe - Left First Assessment and Plan (1) Diabetic foot ulcer Current Visit: Yes Status: Acute Code(s): E11.621 - TYPE 2 DIABETES MELLITUS WITH FOOT ULCER; L97.509 - NON-PRESSURE CHRONIC ULCER OTH PRT UNSP FOOT W UNSP SEVERITY SNOMED Code(s): 645017760 (2) Diabetic foot infection Current Visit: Yes Status: Acute Code(s): E11.628 - TYPE 2 DIABETES MELLITUS WITH OTHER SKIN COMPLICATIONS; L08.9 - LOCAL INFECTION OF THE SKIN AND [place] BCUTANEOUS TISSUE, UNSP SNOMED Code(s): 617569359 (3) Leukocytosis Current Visit: Yes Status: Acute Code(s): D72.829 - ELEVATED WHITE BLOOD CELL COUNT, UNSPECIFIED SNOMED Code(s): 910637486 (4) Cellulitis of great toe Current Visit: Yes Status: Acute Code(s): L03.039 - CELLULITIS OF UNSPECIFIED TOE SNOMED Code(s): 0794045356 Plan: 1patient presented hospital with increasing pain swelling redness to the left big toe and this patient did have history of callus to the left big toe and a previous history of infection to the left big toe treated with IV diuretic for 3 weeks back in June 2024 as reported by the ER physician treatment was done at [facility] to which I do not have any access. 2patient status post vascular surgery evaluation debridement and deep culture culture currently growing Enterococcus Streptococcus and oxacillin resistant Staphylococcus. 3patient will be treated with Unasyn 3 g every 6 hours with vancomycin to cover for the oxacillin resistant Staphylococcus and if continued improved plan is for oral antibiotics on discharge Dictation was produced using [employer] dictation software. please excuse any grammatical, word or spelling errors. Time with Patient: Less than 30
--- NOTE | 2024-12-27 15:39 | P.PN ---
Progress Note - Text Plan patient came with infected big toe plantar aspect and it is deep culture came back as a Enterococcus with strep and staph under care of infectious disease for IV antibiotic silver alginate. Thing with silver alginate is and patient has a offloading shoe will be continued chart from the hospital patient will come to wound clinic on Tuesday
[2024-12-27] MEDS: VANCOMYCIN 2,500 MG in SODIUM CHLORIDE 0.9% 500 ML 500 ML IVPB ONE (16:59)
[2024-12-27 17:33] LABS: Glucose,Whole Blood 152 mg/dL (70-110)
[2024-12-27 20:30] LABS: Glucose,Whole Blood 268 mg/dL (70-110)
[2024-12-27] MEDS: INSULIN GLARGINE (LANTUS) 100 UNIT/ML SYR SQ SCH (20:30)
--- NOTE | 2024-12-27 21:28 | HP ---
HISTORY AND PHYSICAL ADMITTING SUMMARY CHIEF COMPLAINT: Cellulitis of the left great toe. HISTORY OF PRESENT ILLNESS: This 44-year-old presented to the emergency room when his left toe became more red, swollen and infected. He is a very noncompliant diabetic. He has refused insulin despite very elevated blood sugars. He is only taking a GLP-1. REVIEW OF SYSTEMS: Otherwise unremarkable. Past medical history, family history, and personal and social histories are unremarkable and noncontributory. PHYSICAL EXAMINATION: HEAD EARS, EYES, NOSE, MOUTH AND THROAT: Normal. CHEST: Clear. CARDIAC: Normal. ABDOMEN: Protuberant. EXTREMITIES: Normal except for the left great toe where he has a cellulitis, which is currently dressed. IMPRESSION: 1. Infected left great toe. 2. Uncontrolled diabetes mellitus. 3. Noncompliant patient. PLAN: 1. Bed rest. 2. IV fluids. 3. Consult with Surgery and Infectious Disease. 4. Begin insulin management to control his diabetes. MMODL / IJN: [id number] /
--- NOTE | 2024-12-27 21:49 | PN ---
PROGRESS NOTE CHIEF COMPLAINT: Cellulitis of the left great toe. HISTORY OF PRESENT ILLNESS: This gentleman is doing fairly well and sugars are coming down. Insulin will be increased. PHYSICAL EXAMINATION: CHEST: Clear. CARDIAC: Normal. IMPRESSION: 1. Cellulitis of the left great toe. 2. Uncontrolled diabetes. PLAN: Continue to increase his insulin management to obtain control. MMODL / IJN: [id number] /
[2024-12-28] MEDS: VANCOMYCIN 2,250 MG in SODIUM CHLORIDE 0.9% 500 ML 500 ML IVPB SCH (00:19)
--- NOTE | 2024-12-28 03:11 | PN ---
PROGRESS NOTE DATE OF SERVICE: 12/26/2024 CHIEF COMPLAINT: Cellulitis of left great toe and uncontrolled diabetes. HISTORY OF PRESENT ILLNESS: This gentleman is stable. Surgery is waiting to see if the toe recovers at all before going ahead with amputation. His sugars are still quite high. Physical exam is unchanged. IMPRESSION: 1. Cellulitis of left great toe. 2. Noncompliant patient. 3. Uncontrolled diabetes. PLAN: Continue to raise his insulin management and continue his antibiotics. MMODL / IJN: [id number] /
--- NOTE | 2024-12-28 03:20 | PN ---
PROGRESS NOTE DATE OF SERVICE: 12/27/2024 CHIEF COMPLAINT: Cellulitis of the left great toe and uncontrolled diabetes. HISTORY OF PRESENT ILLNESS: This gentleman is doing fairly well. Antibiotics have been started and he has been seen by Infectious Disease and Surgery. Sugars very high and insulin will be started and he agrees to take it. He has not been willing to take insulin in the past and only has been on SGLP1. PHYSICAL EXAMINATION: CHEST: Clear. CARDIAC: Normal. ABDOMEN: He is overweight. Abdomen is protuberant. SKIN: Left great toe was dressed. IMPRESSION: 1. Cellulitis, left great toe. 2. Uncontrolled diabetes. PLAN: Introduce insulin and raise the dose until his sugars are under control. In the meantime, his toe will be managed by Surgery and Infectious Disease. MMODL / IJN: [id number] /
[2024-12-28 06:03] LABS: Glucose,Whole Blood 150 mg/dL (70-110)
[2024-12-28 06:39] LABS: African American GFR (CKD) >90 (>60 ml/min/1.73 sqM); Non-African American GFR(CKD) >90 (>60 ml/min/1.73 sqM)
[2024-12-28 12:33] LABS: Glucose,Whole Blood 128 mg/dL (70-110)
--- NOTE | 2024-12-28 13:04 | P.PN ---
Progress Note - Text 44-year-old gentleman had a big toe callus excised under care of infectious disease dressing wound is getting smaller no fever still present patient IV antibiotic under care of infectious disease will change dressing with silver alginate as patient follow-up with the wound clinic Tuesday if he goes home
[2024-12-28] MEDS: LINEZOLID 600 MG TAB PO SCH (13:51)
[2024-12-28] MEDS: AMOXIC-POT CLAV 875-125MG 1 EACH TAB PO SCH (13:51)
[2024-12-28 14:55] VITALS: BP 141/94; PULSE 82; RESP 20; TEMP 98.1
--- NOTE | 2024-12-28 16:28 | P.PN ---
Subjective Progress Note Date: 12/28/24 Principal diagnosis: Reason for follow-up is left big toe diabetic foot infection/cellulitis Patient is a 44-year-old -Micron[place] male with a past medical history significant for diabetes mellitus in this patient has been dealing with the callus to the left big toe for some time and to follow-up with Dr. Cornell at the wound care center patient presented to the hospital concerning for left big toe swelling redness patient has been diagnosed with a left big toe diabetic foot infection and did have a bedside debridement by vascular surgery. On today's evaluation that is 12/28/2024, the patient continues to be afebrile, the patient is on room air and breathing comfortably, the Pt denies having any chest pain or cough, the patient denies having any abdominal pain no vomiting or any diarrhea and denies pain to the left big toe patient hasIV and refusing to have any IV placed. Patient did have a creatinine 0.56 Objective - Vital Signs Vital signs: Vital Signs Temp 97.9 F 12/28/24 08:00 Pulse 73 12/28/24 08:00 Resp 18 12/28/24 08:00 BP 134/79 12/28/24 08:00 Pulse Ox 97 12/28/24 08:00 FiO2 Intake & Output 12/27/24 12/28/24 12/28/24 18:59 06:59 18:59 Intake Total 480 118 Balance 480 118 Intake: Oral 480 118 Other: Voiding Method Toilet Toilet # Voids 1 2 - Exam GENERAL DESCRIPTION: Middle-age male lying in bed in no distress RESPIRATORY SYSTEM: Unlabored breathing , clear to auscultation HEART: S1 S2 regular rate and rhythm , ABDOMEN: Soft , no tenderness EXTREMITIES: Left big toe currently dressed no drainage - Labs CBC & Chem 7: 12/27/24 05:34 12/28/24 05:45 Labs: Abnormal Lab Results - Last 24 Hours (Table) 12/27/24 12/27/24 12/28/24 Range/Units 17:27 20:29 05:45 Creatinine 0.56 L (0.66-1.25) mg/dL POC Glucose (mg/dL) 152 H 268 H (70-110) mg/dL 12/28/24 12/28/24 Range/Units 06:02 12:31 Creatinine (0.66-1.25) mg/dL POC Glucose (mg/dL) 150 H 128 H (70-110) mg/dL Microbiology - Last 24 Hours (Table) 12/25/24 15:00 Gram Stain - Final Toe - Left First Wound Culture - Final 12/24/24 16:42 Blood Culture - Preliminary Blood Assessment and Plan (1) Diabetic foot ulcer Status: Acute Code(s): E11.621 - TYPE 2 DIABETES MELLITUS WITH FOOT ULCER; L97.509 - NON-PRESSURE CHRONIC ULCER OTH PRT UNSP FOOT W UNSP SEVERITY SNOMED Code(s): 333776570 (2) Diabetic foot infection Status: Acute Code(s): E11.628 - TYPE 2 DIABETES MELLITUS WITH OTHER SKIN COMPLICATIONS; L08.9 - LOCAL INFECTION OF THE SKIN AND SUBCUTANEOUS TISSUE, UNSP SNOMED Code(s): 082661686 (3) Leukocytosis Status: Acute Code(s): D72.829 - ELEVATED WHITE BLOOD CELL COUNT, UNSPECIFIED SNOMED Code(s): 943199126 (4) Cellulitis of great toe Status: Acute Code(s): L03.039 - CELLULITIS OF UNSPECIFIED TOE SNOMED Code(s): 0967426035 Plan: 1patient presented hospital with increasing pain swelling redness to the left big toe and this patient did have history of callus to the left big toe and a previous history of infection to the left big toe treated with IV diuretic for 3 weeks back in June 2024 as reported by the ER physician treatment was done at [facility] to which I do not have any access. 2patient status post vascular surgery evaluation debridement and deep culture culture currently growing Enterococcus Streptococcus and oxacillin resistant Staphylococcus. 3patient did last his IV antibiotic switched over to Augmentin and Zyvox prescription for outpatient antibiotic has been sent to the pharmacy and case discussed with the admitting physician about discharge Dictation was produced using [employer] dictation software. please excuse any grammatical, word or spelling errors.
--- NOTE | 2024-12-28 16:55 | DS ---
DISCHARGE SUMMARY CHIEF COMPLAINT: Infected left great toe and uncontrolled diabetes. HISTORY OF PRESENT ILLNESS AND PHYSICAL EXAMINATION: Details of this man's history and physical can be found in the initial workup. LABORATORY STUDIES: While he is in the hospital, he had laboratory studies, details of which can be found in the laboratory section of his chart. COURSE IN THE HOSPITAL: After admission, he was seen by Infectious Disease and Surgery. The wound was dressed and IV antibiotics were started. Surgery initially thought that the toe may have to be amputated, but it was determined that there was antibiotics and management of the infection, it would remain viable. His sugars are very high and he was started on insulin, which he has been reluctant to do as an outpatient. Sugars are coming down and Infectious Disease switched him over to oral antibiotics and felt he could be discharged. He will go home on his usual activity, diet medications along with insulin and to be seen in the office in several days. FINAL DIAGNOSES: 1. Cellulitis of the left great toe. 2. Uncontrolled insulin-dependent diabetes mellitus. 3. Noncompliant patient. OPERATIONS: None. CONSULTATIONS: Vascular Surgery and Infectious Disease. MMODL / IJN: [id number] /
[2024-12-29] MEDS ORDERED: VANCOMYCIN TROUGH DUE 1 EACH MISC MISCELLANE ONE (07:00)
== END 2024-12-28 15:12 | disposition home or self-care (01) | DRG 639 ==
LOC: EC 16:04 → 6NMEDSUR 17:24 → UNDOADMOB 17:24 → INTOOBSV 17:25 → OBSVTOIN 17:25 → 6NMEDSUR 21:12 → OBSVTOIN 12-26 07:30 → 6NMEDSUR 12-26 07:30
PROVIDERS: ADMIT Family Medicine; ATTEND Family Medicine
DX: E11.621 Type 2 diabetes mellitus with foot ulcer (principal); B95.2 Enterococcus as the cause of diseases classified elsewhere; E11.65 Type 2 diabetes mellitus with hyperglycemia; L03.032 Cellulitis of left toe; L84 Corns and callosities; S90.423A Blister (nonthermal), unspecified great toe, initial encounter; E11.628 Type 2 diabetes mellitus with other skin complications; Z91.199 Patient's noncompliance with other medical treatment and regimen due to unspecified reason; Z79.85 Long-term (current) use of injectable non-insulin antidiabetic drugs; Z28.21 Immunization not carried out because of patient refusal
CPT/HCPCS: 36415; 80053; 82565; 83036; 83605; 85025; 85652; 86140; 87040; 87070; 87075; 87077; 87186; 87205; 96361; 96365; 99285